=== PATIENT | male | born 1995 ===

== ENCOUNTER → 2024-08-04 | Outpatient (REF) | payer OTHER ==
[2024-08-04 14:47] LABS: SEMEN APPEARANCE OPAQUE (OPAQUE); SEMEN VISCOSITY LIQUID (LIQUID); SEMEN VOLUME 3.2 ML (2.0-5.0); SEMEN WBC >1 M/ml (<=1 M/ml); SEMEN pH 8.5 (7.0-8.0)
== END ==
LOC: M LAB REF 14:15
PROVIDERS: ATTEND Student in an Organized Health Care Education/Training Program
DX: Z30.8 Encounter for other contraceptive management (principal)